=== PATIENT | male | born 1970 | race Caucasian/White ===

== ENCOUNTER 2016-07-08 18:10 | Emergency (ER) | payer OTHER ==
[2016-07-08] MEDS ORDERED: TDAP ADULT 0.5 ML INJ (BOOSTRIX) IM ONE (18:30)
--- NOTE | 2016-07-08 18:34 | EDPHY ---
H & P Time Seen by Provider: 07/08/16 18:31 HPI/ROS: HPI: 45-year-old male presents to emergency department with chief concern laceration of 1st and 2nd finger of right hand. Occurred 30 minutes prior to arrival when he cut his fingers with a knife in the kitchen. Denies weakness, numbness, or tingling of his extremity. Denies other injury time of incident. Right-hand dominant. Unknown last tetanus. ROS: Constitutional: No fever, chills Cardiovascular: No dusky, cool extremity GI: no nausea, vomiting Musculoskeletal: No decreased ROM or joint pain Neuro: No weakness, numbness, or tingling of extremities Mental status: no change in mentation Skin: Laceration as noted above Smoking Status: Never smoked Physical Exam: Vital signs stable, reviewed by me General: Awake, alert, calm, cooperative. No acute distress. Head: Normalocephalic. Atraumatic. EENT: PERRLA. EOMI. CV: Radial pulses 2+ bilaterally. Brisk cap refill all extremities. Neuro: Alert. Oriented x 3. Speech clear. Sensation intact all extremities, specifically distal to lacerations. Skin: Skin warm, dry. There is a 1 cm laceration palmar surface distal right 1st finger tip, 1 cm laceration palmar surface distal right 2nd finger tip. Musculoskeletal: Strength 5+ all extremities. Range of motion intact to the right 1st [place] CP J and IPJ with 5+ strength to resistance of palmar and dorsiflexion. Range of motion intact to right 2nd MCP J, PIPJ, and DIPJ with 5 + strength to resistance of palmar and dorsiflexion Constitutional: Initial Vital Signs Temperature (C) 36.6 C 07/08/16 18:13 Heart Rate 75 07/08/16 18:13 Respiratory Rate 17 07/08/16 18:13 Blood Pressure 123/91 H 07/08/16 18:13 O2 Sat (%) 98 07/08/16 18:13 O2 Delivery Mode Room Air Allergies/Adverse Reactions: Penicillins Allergy (Verified 07/08/16 18:12) Home Medications: Medication Instructions Recorded NK [No Known Home Meds] 10/20/13 Medical Decision Making Procedures: After verbal consent was obtained and risks and benefits explained, the laceration was anesthetized using a total of 4 ml of 0/5% Marcaine. Lac then irrigated per protocol by sample prep technician. Under sterile procedure, the wound was explored to its base with a gloved finger and no foreign body was identified. No deep structure identified. Wound was then draped and sterile procedure followed during laceration repair. 1st finger lack repaired using 2., 6-0 Prolene sutures, 2nd finger lack repaired using 3. 6-0 Prolene sutures. After repair, laceration cleansed, bacitracin and sterile dressing applied. Procedure performed by myself. Procedure was simple. Pt tolerated the procedure well. - Data Points Medications Given: Discontinued Medications Diphtheria/Tetanus/Acell Pertussis (Boostrix) 0.5 ml IM .ONCE ONE Stop: 07/08/16 18:31 Last Admin: 07/08/16 18:36 Dose: 0.5 ml Departure - Departure Disposition: Home, Routine, Self-Care Clinical Impression: Finger laceration Qualifiers: Encounter type: initial encounter Qualifier Code: (S61.219A) Laceration without foreign body of unspecified finger without damage to nail, initial encounter Condition: Good Instructions: Finger Laceration (ED) Additional Instructions: Plan: We saw you here today at the ED with a laceration of your fingers. We'll have you leave the dressings on for 24 hours then remove them and begin cleaning the area daily by letting warm, soapy water run over it, but do not scrub or rub the site. Remove dried blood with a Q-tip dipped in water. Apply a thin layer of antibiotic ointment. Continue this routine daily. Recheck urgently if the area develops redness, swelling, increased pain, or red streaking above the wound, or if you develop a fever. Return to the emergency department in 7-10 days for suture removal. Return prior to then if any issues or concerns. Referrals: Meet Brasher MD [Primary Care Provider] - As per Instructions
[2016-07-08 19:29] VITALS: BP 120/89; PULSE 71; RESP 16; TEMP 98.1; O2SAT 96
== END 2016-07-08 19:29 | disposition home or self-care (01) ==
PROC: 0HQFXZZ Repair Right Hand Skin, External Approach (ICD-10-PCS; principal; 2016-07-08)
DX: S61.411A Laceration without foreign body of right hand, initial encounter (principal); Z23 Encounter for immunization; W26.0XXA Contact with knife, initial encounter; Y92.010 Kitchen of single-family (private) house as the place of occurrence of the external cause

== ENCOUNTER → 2018-02-28 | Outpatient (CLI) | payer OTHER | LOC: BMCIMAGING 09:18 | PROVIDERS: ATTEND Physician Assistant | DX: R22.41 Localized swelling, mass and lump, right lower limb (principal) ==

== ENCOUNTER → 2018-03-06 | Outpatient (CLI) | payer OTHER | LOC: FIMAGING 18:44 | PROVIDERS: ATTEND Podiatrist Foot & Ankle Surgery | DX: R60.0 Localized edema (principal) ==